=== PATIENT | male | born 1935 | race Caucasian/White ===

== ENCOUNTER 2017-02-16 06:59 | Day surgery (SDC) | payer OTHER ==
[2017-02-16] MEDS ORDERED: NS 500 ML IV 500 ML IV ONE (07:26)
[2017-02-16] MEDS ORDERED: TETRACAINE 0.5% OPHTH 1 DOSE AFFEYE ONE ×3 (07:35→10:05)
[2017-02-16] MEDS ORDERED: VIGAMOX 0.5% OPHTH 1 DOSE AFFEYE ONE ×5 (07:40→10:40)
[2017-02-16] MEDS ORDERED: PROLENSA OPHTH 1 DOSE AFFEYE ONE (07:51)
[2017-02-16] MEDS ORDERED: ALPHAGAN-P OPHTH 1 DOSE AFFEYE ONE (07:52)
[2017-02-16] MEDS ORDERED: MYDRIACIL OPHTH 1 DOSE AFFEYE ONE ×4 (07:53→10:00)
[2017-02-16] MEDS ORDERED: CYCLOGYL 1% OPHTH 1 DOSE OP ONE ×4 (07:53→10:00)
[2017-02-16] MEDS ORDERED: AK-DILATE 2.5% OPHTH 1 DOSE OP ONE ×4 (07:53→10:00)
[2017-02-16] MEDS ORDERED: VERSED ONE (08:44)
[2017-02-16] MEDS ORDERED: VERSED IVP ONE (09:55)
[2017-02-16] MEDS ORDERED: ALCAINE or OPHTHETIC 1 DOSE AFFEYE ONE (09:56)
[2017-02-16] MEDS ORDERED: AK-DILATE 10% OPHTH 1 DOSE AFFEYE ONE (09:59)
[2017-02-16] MEDS ORDERED: BETADINE OPHTH SOLN 5% EACHEYE ONE (10:05)
[2017-02-16] MEDS ORDERED: DUOVISC IO ONE (10:23)
[2017-02-16] MEDS ORDERED: BSS OPHTH (PLAIN) 500 ML with VANCOMYCIN HCL 500 MG VIAL 25 MG, ADRENALINE CHL INJ 1 MG IR ONE ×3 (10:23)
[2017-02-16] MEDS ORDERED: ADRENALINE CHL INJ IJ ONE (10:23)
[2017-02-16] MEDS ORDERED: XYLOCAINE-MPF 1% IJ ONE (10:23)
[2017-02-16] MEDS ORDERED: VISCOAT 0.5 ML IO ONE (10:33)
[2017-02-16 11:02] VITALS: BP 148/65
== END 2017-02-16 11:10 | disposition home or self-care (01) ==
LOC: SURG1 06:59
PROVIDERS: ATTEND Ophthalmology
PROC: 08RJ3JZ Replacement of Right Lens with Synthetic Substitute, Percutaneous Approach (ICD-10-PCS; principal; 2017-02-16 09:30)
PROC: 08DJ3ZZ Extraction of Right Lens, Percutaneous Approach (ICD-10-PCS; principal; 2017-02-16 09:30)
DX: H25.11 Age-related nuclear cataract, right eye (principal); H25.011 Cortical age-related cataract, right eye; H52.221 Regular astigmatism, right eye
CPT/HCPCS: 99100; A9270; A4217; J0170; J2250; J3370

== ENCOUNTER 2017-03-09 07:02 | Day surgery (SDC) | payer OTHER ==
[2017-03-09] MEDS ORDERED: TETRACAINE 0.5% OPHTH 1 DOSE AFFEYE ONE ×5 (07:10→10:48)
[2017-03-09] MEDS ORDERED: VIGAMOX 0.5% OPHTH 1 DOSE AFFEYE ONE ×6 (07:15→11:09)
[2017-03-09] MEDS ORDERED: NS 500 ML IV 500 ML IV ONE (07:20)
[2017-03-09] MEDS ORDERED: ALPHAGAN-P OPHTH 1 DOSE AFFEYE ONE (07:26)
[2017-03-09] MEDS ORDERED: PROLENSA OPHTH 1 DOSE AFFEYE ONE (07:26)
[2017-03-09] MEDS ORDERED: CYCLOGYL 1% OPHTH 1 DOSE OP ONE ×3 (07:28→07:30)
[2017-03-09] MEDS ORDERED: AK-DILATE 2.5% OPHTH 1 DOSE OP ONE ×3 (07:28→07:30)
[2017-03-09] MEDS ORDERED: MYDRIACIL OPHTH 1 DOSE AFFEYE ONE ×3 (07:28→07:30)
[2017-03-09] MEDS ORDERED: VERSED ONE (08:42)
[2017-03-09] MEDS ORDERED: FENTANYL INJ 100 mcg ONE (08:43)
[2017-03-09] MEDS ORDERED: VERSED IVP ONE ×2 (10:05→10:15)
[2017-03-09] MEDS ORDERED: ALCAINE or OPHTHETIC 1 DOSE AFFEYE ONE ×2 (10:05→10:15)
[2017-03-09] MEDS ORDERED: AK-DILATE 10% OPHTH 1 DOSE AFFEYE ONE ×2 (10:06→10:18)
[2017-03-09] MEDS ORDERED: FENTANYL INJ 100 mcg IVP ONE (10:16)
[2017-03-09] MEDS ORDERED: BETADINE OPHTH SOLN 5% EACHEYE ONE (10:30)
[2017-03-09] MEDS ORDERED: DUOVISC IO ONE ×2 (10:36→10:48)
[2017-03-09] MEDS ORDERED: ADRENALINE CHL INJ IJ ONE ×2 (10:36→10:48)
[2017-03-09] MEDS ORDERED: XYLOCAINE-MPF 1% IJ ONE ×2 (10:36→10:48)
[2017-03-09] MEDS ORDERED: BSS OPHTH (PLAIN) 500 ML with VANCOMYCIN HCL 500 MG VIAL 25 MG, ADRENALINE CHL INJ 1 MG IR ONE ×6 (10:37)
[2017-03-09] MEDS ORDERED: VISCOAT 0.5 ML IO ONE (10:59)
[2017-03-09 11:47] VITALS: BP 146/82
== END 2017-03-09 11:35 | disposition home or self-care (01) ==
LOC: SURG1 07:02
PROVIDERS: ATTEND Ophthalmology
PROC: 08DK3ZZ Extraction of Left Lens, Percutaneous Approach (ICD-10-PCS; principal; 2017-03-09 10:00)
PROC: 08RK3JZ Replacement of Left Lens with Synthetic Substitute, Percutaneous Approach (ICD-10-PCS; principal; 2017-03-09 10:00)
DX: H25.12 Age-related nuclear cataract, left eye (principal); H25.012 Cortical age-related cataract, left eye; H52.222 Regular astigmatism, left eye
CPT/HCPCS: 99100; A9270; A4217; J0170; J2250; J3010; J3370